=== PATIENT | female | born 1990 | race African-American/Black ===

== ENCOUNTER 2016-10-16 19:02 | Emergency (ER) | payer OTHER ==
[~2016-10-16] VITALS: Ht 160 cm; Wt 62.3 kg
[~2016-10-16 19:02] MED LIST: LEVAHFA IH; LORA10TA7 PO
[2016-10-16 19:36] LABS: BASOPHILS % (AUTO) 0.6 % (0.0-2.0); EOSINOPHILS % (AUTO) 2.8 % (1.0-6.0); HEMATOCRIT 40.8 % (36-46); HEMOGLOBIN 13.5 g/dL (12.0-16.0); LYMPHOCYTES # (AUTO) 2.7 K/uL (1.0-4.8); MEAN CORPUSCULAR HEMOGLOBIN 29.5 pg (26.0-34.0); MEAN CORPUSCULAR HGB CONC 33.1 G/dL (31.0-37.0); MEAN CORPUSCULAR VOLUME 89 fL (80-100); MONOCYTES # (AUTO) 0.6 K/uL (0.1-1.0); MONOCYTES % (AUTO) 6.5 % (2.0-9.0); NEUTROPHILS # (AUTO) 5.4 K/uL (1.8-7.7); NEUTROPHILS % (AUTO) 60.1 % (40.0-70.0); PLATELET COUNT (AUTO) 254 K/uL (150-450); RED BLOOD CELL COUNT(AUTO) 4.59 MIL/uL (4.00-5.20)
[2016-10-16 19:46] LABS: ANION GAP 5 mmol/L (8-16); CALCIUM, TOTAL 9.3 mg/dL (8.8-10.5); CARBON DIOXIDE 32 mmol/L (22-29); CHLORIDE 102 mmol/L (98-107); CREATININE 0.88 mg/dL (0.60-1.30); GLOMERULAR FILTR. RATE CALC > 60 mL/min (>60); POTASSIUM 3.2 mmol/L (3.5-5.1); SODIUM SERUM 139 mmol/L (136-145); UREA NITROGEN, BLOOD 7 mg/dL (7-18)
[2016-10-16 19:52] LABS: ALANINE AMINOTRANSFERASE 19 U/L (12-78); ALBUMIN 4.2 g/dL (3.4-5.0); AMYLASE 27 U/L (25-115); ASPARTATE AMINOTRANSFERASE 12 U/L (15-37); BILIRUBIN,TOTAL 0.3 mg/dL (0.1-1.0); TOTAL PROTEIN, SERUM 7.9 g/dL (6.4-8.2)
[2016-10-16 21:57] LABS: ADD UA MICROSCOPIC NO; APPEARANCE,URINE CLEAR (CLEAR); GLUCOSE, URINE (UA) NEGATIVE (NEGATIVE); KETONES,URINE NEGATIVE (NEGATIVE); LEUKOCYTE ESTERASE ,URINE NEGATIVE (NEGATIVE); OCCULT BLOOD,URINE NEGATIVE (NEGATIVE); PH,URINE 5.5 (5.0-8.0); PROTEIN,URINE NEGATIVE (NEGATIVE)
[2016-10-16] MEDS ORDERED: MORPHINE SULFATE 4 MG/ML SYRINGE IVP ONE (22:30)
[2016-10-16] MEDS ORDERED: SODIUM CHLORIDE 0.9% 1,000 ML IV ONE (22:30)
[2016-10-16] MEDS ORDERED: DEXAMETHASONE SOD PHOS 4 MG/ML 5 ML VIAL IVP ONE (22:30)
[2016-10-16] MEDS ORDERED: PROCHLORPERAZINE EDISYLATE 5 MG/ML 2 ML VIAL IVP ONE (22:30)
[2016-10-16] MEDS ORDERED: ONDANSETRON HCL 4 MG/2 ML VIAL IVP ONE (22:45)
[2016-10-17 00:52] VITALS: BP 118/78
== END 2016-10-17 00:53 | disposition home or self-care (01) ==
LOC: EMS 19:05
DX: R10.32 Left lower quadrant pain (principal); G43.909 Migraine, unspecified, not intractable, without status migrainosus; J45.909 Unspecified asthma, uncomplicated; N19 Unspecified kidney failure
CPT/HCPCS: 36415; 76830; 76856; 80053; 81003; 82150; 83690; 84703; 85025; 96361; 96374; 96375; 99285; J0780; J1100; J2270; J2405; J7030

== ENCOUNTER 2016-12-18 10:58 | Emergency (ER) | payer OTHER ==
[~2016-12-18] VITALS: Ht 160 cm; Wt 61.3 kg
[2016-12-18] MEDS ORDERED: HYDROCODONE/ACETAMINOPHEN 5-325 MG TABLET PO ONE (13:30)
[2016-12-18] MEDS ORDERED: DEXAMETHASONE SOD PHOS 4 MG/ML 5 ML VIAL IM ONE (13:30)
[2016-12-18] MEDS ORDERED: IPRATROPIUM BROMIDE 0.5 MG/2.5 ML NEB SOLUTION NEB ONE (13:30)
[2016-12-18] MEDS ORDERED: ALBUTEROL SULFATE 5 MG/ML 20 ML NEB SOLN [BULK] NEB ONE (13:30)
[2016-12-18 15:47] LABS: APPEARANCE,URINE CLOUDY (CLEAR); GLUCOSE, URINE (UA) NEGATIVE (NEGATIVE); KETONES,URINE NEGATIVE (NEGATIVE); LEUKOCYTE ESTERASE ,URINE LARGE (NEGATIVE); PROTEIN,URINE TRACE (NEGATIVE)
[2016-12-18 15:52] LABS: ADD UA MICROSCOPIC YES; OCCULT BLOOD,URINE TRACE (NEGATIVE); SQUAMOUS EPITHELIAL CELL,UR Many /LPF (None Seen); WBC,URINE 51-100 /HPF (0-5)
[2016-12-18] MEDS ORDERED: CIPROFLOXACIN HCL 250 MG TABLET PO ONE (16:00)
[2016-12-18 16:20] VITALS: BP 114/62
== END 2016-12-18 16:26 | disposition home or self-care (01) ==
LOC: EMS 10:59
DX: N39.0 Urinary tract infection, site not specified (principal); J45.909 Unspecified asthma, uncomplicated; F41.9 Anxiety disorder, unspecified; N83.209 Unspecified ovarian cyst, unspecified side
CPT/HCPCS: 71020; 80307; 81001; 87086; 94644; 99285; J1100; J7611

== ENCOUNTER 2016-12-25 18:05 | Emergency (ER) | payer OTHER ==
[~2016-12-25] VITALS: Ht 160 cm; Wt 58.0 kg
[2016-12-25] MEDS ORDERED: DiphenhydrAMINE HCL 50 MG/ML VIAL IVP ONE (19:00)
[2016-12-25] MEDS ORDERED: SODIUM CHLORIDE 0.9% 1,000 ML IV ONE ×2 (19:00→20:45)
[2016-12-25] MEDS ORDERED: PROCHLORPERAZINE EDISYLATE 5 MG/ML 2 ML VIAL IVP ONE (19:00)
[2016-12-25] MEDS ORDERED: ALBUTEROL SULFATE 5 MG/ML 20 ML NEB SOLN [BULK] NEB ONE (19:15)
[2016-12-25 19:17] LABS: BASOPHILS % (AUTO) 0.4 % (0.0-2.0); EOSINOPHILS % (AUTO) 2.5 % (1.0-6.0); HEMATOCRIT 42.6 % (36-46); HEMOGLOBIN 13.9 g/dL (12.0-16.0); LYMPHOCYTES # (AUTO) 3.8 K/uL (1.0-4.8); LYMPHOCYTES % (AUTO) 32.3 % (22.0-44.0); MEAN CORPUSCULAR HEMOGLOBIN 29.4 pg (26.0-34.0); MEAN CORPUSCULAR HGB CONC 32.5 G/dL (31.0-37.0); MEAN CORPUSCULAR VOLUME 90 fL (80-100); MONOCYTES # (AUTO) 0.8 K/uL (0.1-1.0); MONOCYTES % (AUTO) 6.7 % (2.0-9.0); NEUTROPHILS # (AUTO) 6.8 K/uL (1.8-7.7); NEUTROPHILS % (AUTO) 58.1 % (40.0-70.0); PLATELET COUNT (AUTO) 243 K/uL (150-450); RED BLOOD CELL COUNT(AUTO) 4.73 MIL/uL (4.00-5.20); RED CELL DISTRIBUTION WIDTH 12.6 % (11.5-14.5); WHITE BLOOD COUNT (AUTO) 11.7 K/uL (4.5-11.0)
[2016-12-25] MEDS ORDERED: 0.9% SODIUM CHLORIDE 5 ML NEB SOLUTION NEB ONE (19:26)
[2016-12-25 19:31] LABS: ANION GAP 8 mmol/L (8-16); CALCIUM, TOTAL 9.1 mg/dL (8.8-10.5); CARBON DIOXIDE 31 mmol/L (22-29); CHLORIDE 100 mmol/L (98-107); CREATININE 1.03 mg/dL (0.60-1.30); GLOMERULAR FILTR. RATE CALC > 60 mL/min (>60); POTASSIUM 4.1 mmol/L (3.5-5.1); SODIUM SERUM 139 mmol/L (136-145); UREA NITROGEN, BLOOD 15 mg/dL (7-18)
[2016-12-25 19:32] LABS: GLUCOSE,POINT OF CARE 91 MG/DL (70-110)
[2016-12-25 19:39] LABS: ALANINE AMINOTRANSFERASE 28 U/L (12-78); ALBUMIN 3.8 g/dL (3.4-5.0); ASPARTATE AMINOTRANSFERASE 12 U/L (15-37); BILIRUBIN,TOTAL 0.4 mg/dL (0.1-1.0); TOTAL PROTEIN, SERUM 7.5 g/dL (6.4-8.2)
[2016-12-25 20:17] LABS: INFLUENZA TYPE B NEGATIVE FOR TYPE B (NEGATIVE)
[2016-12-25 20:21] VITALS: BP 105/76
[2016-12-25 21:23] LABS: APPEARANCE,URINE CLEAR (CLEAR); GLUCOSE, URINE (UA) NEGATIVE (NEGATIVE); KETONES,URINE NEGATIVE (NEGATIVE); LEUKOCYTE ESTERASE ,URINE MODERATE (NEGATIVE); OCCULT BLOOD,URINE NEGATIVE (NEGATIVE); PROTEIN,URINE NEGATIVE (NEGATIVE)
[2016-12-25 21:34] LABS: RBC,URINE None Seen /HPF (0-2)
== END 2016-12-25 20:54 | disposition home or self-care (01) ==
LOC: EMS 18:08
DX: R10.9 Unspecified abdominal pain (principal); R51 Headache; J45.909 Unspecified asthma, uncomplicated; R10.30 Lower abdominal pain, unspecified
CPT/HCPCS: 36415; 71010; 80053; 81001; 82948; 82962; 83690; 84703; 85025; 87086; 87804; 94640; 96361; 96374; 96375; 99285; J0780; J1200; J7030; J7611

== ENCOUNTER 2017-02-22 16:15 | Emergency (ER) | payer OTHER ==
[~2017-02-22] VITALS: Ht 160 cm; Wt 57.7 kg
[2017-02-22 17:38] LABS: BASOPHILS % (AUTO) 0.6 % (0.0-2.0); HEMATOCRIT 40.9 % (36-46); HEMOGLOBIN 13.8 g/dL (12.0-16.0); LYMPHOCYTES # (AUTO) 2.2 K/uL (1.0-4.8); LYMPHOCYTES % (AUTO) 27.3 % (22.0-44.0); MEAN CORPUSCULAR HEMOGLOBIN 30.1 pg (26.0-34.0); MEAN CORPUSCULAR HGB CONC 33.7 G/dL (31.0-37.0); MEAN CORPUSCULAR VOLUME 89 fL (80-100); MONOCYTES # (AUTO) 0.5 K/uL (0.1-1.0); MONOCYTES % (AUTO) 5.5 % (2.0-9.0); NEUTROPHILS # (AUTO) 5.3 K/uL (1.8-7.7); NEUTROPHILS % (AUTO) 64.6 % (40.0-70.0); PLATELET COUNT (AUTO) 253 K/uL (150-450); RED BLOOD CELL COUNT(AUTO) 4.59 MIL/uL (4.00-5.20); RED CELL DISTRIBUTION WIDTH 12.3 % (11.5-14.5); WHITE BLOOD COUNT (AUTO) 8.2 K/uL (4.5-11.0)
[2017-02-22 17:38] LABS: APPEARANCE,URINE CLOUDY (CLEAR); GLUCOSE, URINE (UA) NEGATIVE (NEGATIVE); KETONES,URINE NEGATIVE (NEGATIVE); LEUKOCYTE ESTERASE ,URINE NEGATIVE (NEGATIVE); OCCULT BLOOD,URINE NEGATIVE (NEGATIVE); PH,URINE 5.5 (5.0-8.0); PROTEIN,URINE NEGATIVE (NEGATIVE)
[2017-02-22 17:40] LABS: RBC,URINE 0-2 /HPF (0-2); SQUAMOUS EPITHELIAL CELL,UR Many /LPF (None Seen)
[2017-02-22 17:42] LABS: ANION GAP 9 mmol/L (8-16); CALCIUM, TOTAL 8.6 mg/dL (8.8-10.5); CARBON DIOXIDE 29 mmol/L (22-29); CHLORIDE 102 mmol/L (98-107); CREATININE 0.95 mg/dL (0.60-1.30); GLOMERULAR FILTR. RATE CALC > 60 mL/min (>60); POTASSIUM 3.5 mmol/L (3.5-5.1); SODIUM SERUM 140 mmol/L (136-145); UREA NITROGEN, BLOOD 16 mg/dL (7-18)
[2017-02-22 17:49] LABS: ALANINE AMINOTRANSFERASE 24 U/L (12-78); ALBUMIN 4.1 g/dL (3.4-5.0); ASPARTATE AMINOTRANSFERASE 15 U/L (15-37); BILIRUBIN,TOTAL 0.5 mg/dL (0.1-1.0); TOTAL PROTEIN, SERUM 7.5 g/dL (6.4-8.2)
[2017-02-22 17:51] LABS: LACTIC ACID 1.1 mmol/L (0.4-2.0)
[2017-02-22 18:45] VITALS: BP 109/66
== END 2017-02-22 19:05 | disposition home or self-care (01) ==
LOC: EMS 16:16
DX: S30.1XXA Contusion of abdominal wall, initial encounter (principal); K59.00 Constipation, unspecified; R11.0 Nausea; J45.909 Unspecified asthma, uncomplicated; W19.XXXA Unspecified fall, initial encounter; Y93.89 Activity, other specified; Y92.89 Other specified places as the place of occurrence of the external cause; Y99.8 Other external cause status
CPT/HCPCS: 76705; 81025; 83605; 86140; 99285

== ENCOUNTER 2017-07-15 16:34 | Emergency (ER) | payer OTHER ==
[~2017-07-15] VITALS: Ht 160 cm; Wt 57.0 kg
[2017-07-15 17:07] LABS: BASOPHILS % (AUTO) 0.2 % (0.0-2.0); EOSINOPHILS % (AUTO) 2.4 % (1.0-6.0); HEMATOCRIT 41.1 % (36-46); HEMOGLOBIN 14.2 g/dL (12.0-16.0); LYMPHOCYTES % (AUTO) 11.3 % (22.0-44.0); MEAN CORPUSCULAR HEMOGLOBIN 30.4 pg (26.0-34.0); MEAN CORPUSCULAR HGB CONC 34.4 G/dL (31.0-37.0); MEAN CORPUSCULAR VOLUME 88 fL (80-100); MONOCYTES # (AUTO) 0.5 K/uL (0.1-1.0); MONOCYTES % (AUTO) 5.1 % (2.0-9.0); NEUTROPHILS # (AUTO) 7.5 K/uL (1.8-7.7); PLATELET COUNT (AUTO) 206 K/uL (150-450); RED BLOOD CELL COUNT(AUTO) 4.66 MIL/uL (4.00-5.20); RED CELL DISTRIBUTION WIDTH 12.3 % (11.5-14.5)
[2017-07-15 17:25] LABS: APPEARANCE,URINE CLEAR (CLEAR); GLUCOSE, URINE (UA) NEGATIVE (NEGATIVE); KETONES,URINE 40 mg/dL (NEGATIVE); LEUKOCYTE ESTERASE ,URINE NEGATIVE (NEGATIVE); NITRATE,URINE NEGATIVE (NEGATIVE); OCCULT BLOOD,URINE NEGATIVE (NEGATIVE); PH,URINE 7.5 (5.0-8.0); PROTEIN,URINE NEGATIVE (NEGATIVE); UROBILINOGEN,URINE 0.2 mg/dL (<=1.0)
[2017-07-15 17:27] LABS: BILIRUBIN,URINE PRELIM. POSITIVE (NEGATIVE)
[2017-07-15] MEDS ORDERED: KETOROLAC TROMETHAMINE 30 MG/ML VIAL IVP ONE (19:00)
[2017-07-15 20:38] VITALS: BP 113/73
== END 2017-07-15 20:56 | disposition home or self-care (01) ==
LOC: EMS 16:36
DX: R10.31 Right lower quadrant pain (principal); M54.5 Low back pain; F41.9 Anxiety disorder, unspecified; J02.9 Acute pharyngitis, unspecified; R51 Headache; J45.909 Unspecified asthma, uncomplicated; R00.0 Tachycardia, unspecified
CPT/HCPCS: 36415; 74176; 81003; 84703; 85025; 96374; 99285; J1885

== ENCOUNTER 2017-11-19 13:55 | Emergency (ER) | payer OTHER ==
[~2017-11-19] VITALS: Ht 160 cm; Wt 57.7 kg
[2017-11-19 14:10] VITALS: BP 120/76
[2017-11-19 14:43] LABS: BASOPHILS % (AUTO) 0.5 % (0.0-2.0); EOSINOPHILS % (AUTO) 3.6 % (1.0-6.0); HEMATOCRIT 38.7 % (36-46); HEMOGLOBIN 13.2 g/dL (12.0-16.0); LYMPHOCYTES % (AUTO) 28.9 % (22.0-44.0); MEAN CORPUSCULAR HEMOGLOBIN 29.6 pg (26.0-34.0); MEAN CORPUSCULAR VOLUME 87 fL (80-100); MONOCYTES # (AUTO) 0.4 K/uL (0.1-1.0); MONOCYTES % (AUTO) 6.4 % (2.0-9.0); NEUTROPHILS # (AUTO) 4.2 K/uL (1.8-7.7); NEUTROPHILS % (AUTO) 60.6 % (40.0-70.0); PLATELET COUNT (AUTO) 204 K/uL (150-450); RED BLOOD CELL COUNT(AUTO) 4.44 MIL/uL (4.00-5.20); RED CELL DISTRIBUTION WIDTH 12.7 % (11.5-14.5)
[2017-11-19 15:12] LABS: ANION GAP 9 mmol/L (8-16); CALCIUM, TOTAL 9.1 mg/dL (8.8-10.5); CARBON DIOXIDE 29 mmol/L (22-29); CHLORIDE 104 mmol/L (98-107); CREATININE 0.83 mg/dL (0.60-1.30); GLOMERULAR FILTR. RATE CALC > 60 mL/min (>60); GLUCOSE,RANDOM 92 mg/dL (70-110); POTASSIUM 3.6 mmol/L (3.5-5.1); SODIUM SERUM 142 mmol/L (136-145); UREA NITROGEN, BLOOD 11 mg/dL (7-18)
[2017-11-19 15:18] LABS: ALANINE AMINOTRANSFERASE 18 U/L (12-78); ALKALINE PHOSPHATASE 27 U/L (46-116); ASPARTATE AMINOTRANSFERASE 14 U/L (15-37); BILIRUBIN,TOTAL 0.6 mg/dL (0.1-1.0); LIPASE 74 U/L (73-393); TOTAL PROTEIN, SERUM 7.3 g/dL (6.4-8.2)
== END 2017-11-19 16:37 | disposition left against medical advice (07) ==
LOC: EMS 13:59
DX: R10.31 Right lower quadrant pain (principal); J45.909 Unspecified asthma, uncomplicated; Z53.21 Procedure and treatment not carried out due to patient leaving prior to being seen by health care provider

== ENCOUNTER 2018-11-28 12:03 | Emergency (ER) | payer SELFPAY ==
[~2018-11-28] VITALS: Ht 160 cm; Wt 57.7 kg
[2018-11-28] MEDS ORDERED: IPRATROPIUM BROMIDE 0.5 MG/2.5 ML NEB SOLUTION NEB ONE (12:45)
[2018-11-28] MEDS ORDERED: ALBUTEROL SULFATE 2.5 MG/0.5 ML NEB SOLUTION NEB ONE (12:45)
[2018-11-28] MEDS ORDERED: SODIUM CHLORIDE 0.9% 1,000 ML IV ONE (13:00)
[2018-11-28] MEDS ORDERED: ONDANSETRON HCL 4 MG/2 ML VIAL IVP ONE (13:00)
[2018-11-28] MEDS ORDERED: ACETAMINOPHEN 500 MG TABLET PO ONE (13:00)
[2018-11-28 13:23] LABS: BASOPHILS % (AUTO) 0.4 % (0.0-2.0); EOSINOPHILS % (AUTO) 3.5 % (1.0-6.0); HEMOGLOBIN 13.6 g/dL (12.0-16.0); LYMPHOCYTES # (AUTO) 2.3 K/uL (1.0-4.8); MEAN CORPUSCULAR HEMOGLOBIN 30.1 pg (26.0-34.0); MEAN CORPUSCULAR HGB CONC 33.9 G/dL (31.0-37.0); MEAN CORPUSCULAR VOLUME 89 fL (80-100); MONOCYTES # (AUTO) 0.5 K/uL (0.1-1.0); NEUTROPHILS # (AUTO) 3.4 K/uL (1.8-7.7); NEUTROPHILS % (AUTO) 53.1 % (40.0-70.0); PLATELET COUNT (AUTO) 229 K/uL (150-450); RED CELL DISTRIBUTION WIDTH 12.5 % (11.5-14.5)
[2018-11-28 13:37] LABS: B-TYPE NATRIURETIC PEPTIDE 5 pg/mL (0-100)
[2018-11-28 13:46] LABS: ANION GAP 8 mmol/L (8-16); CALCIUM, TOTAL 9.3 mg/dL (8.8-10.5); CARBON DIOXIDE 29 mmol/L (22-29); CHLORIDE 102 mmol/L (98-107); CREATININE 0.79 mg/dL (0.60-1.30); GLOMERULAR FILTR. RATE CALC > 60 mL/min (>60); GLUCOSE,RANDOM 89 mg/dL (70-110); POTASSIUM 3.2 mmol/L (3.5-5.1); SODIUM SERUM 139 mmol/L (136-145); UREA NITROGEN, BLOOD 8 mg/dL (7-18)
[2018-11-28 13:52] LABS: INFLUENZA TYPE A NEGATIVE FOR TYPE A (NEGATIVE); INFLUENZA TYPE B NEGATIVE FOR TYPE B (NEGATIVE)
[2018-11-28] MEDS ORDERED: POTASSIUM CHLORIDE 20 MEQ ER TABLET PO ONE (14:00)
[2018-11-28] MEDS ORDERED: CefTRIAXone 1 GM/DEXTROSE 50 ML IV ONE (14:00)
[2018-11-28] MEDS ORDERED: AZITHROMYCIN 500 MG/NS 250 ML IV ONE (14:00)
[2018-11-28 14:31] LABS: ALANINE AMINOTRANSFERASE 18 U/L (12-78); ALBUMIN 4.1 g/dL (3.4-5.0); ALKALINE PHOSPHATASE 33 U/L (46-116); ASPARTATE AMINOTRANSFERASE 17 U/L (15-37); BILIRUBIN,TOTAL 0.4 mg/dL (0.1-1.0); HCG,QUANTITATIVE < 1 mIU/mL (0-6); LIPASE 73 U/L (73-393); TOTAL PROTEIN, SERUM 7.6 g/dL (6.4-8.2)
[2018-11-28] MEDS ORDERED: ALBUTEROL SULFATE HFA 90 MCG/PUFF 8 GM INHALER IH ONE (15:00)
[2018-11-28 15:15] VITALS: BP 116/80
[2018-11-28] MEDS ORDERED: KETOROLAC TROMETHAMINE 30 MG/ML VIAL IVP ONE (15:30)
== END 2018-11-28 17:14 | disposition home or self-care (01) ==
LOC: EMS 12:06
DX: J18.9 Pneumonia, unspecified organism (principal); J45.909 Unspecified asthma, uncomplicated; F41.9 Anxiety disorder, unspecified; Z79.899 Other long term (current) drug therapy
CPT/HCPCS: 36415; 71045; 80053; 83690; 83880; 84484; 84702; 85025; 87040; 87804; 93005; 94640; 96365; 96367; 96375; 99285; J0456; J0696; J1885; J2405; J7030; J3535

== ENCOUNTER 2019-02-17 11:29 | Emergency (ER) | payer SELFPAY ==
[~2019-02-17] VITALS: Ht 160 cm; Wt 60.0 kg
[2019-02-17 12:19] LABS: APPEARANCE,URINE CLOUDY (CLEAR); BILIRUBIN,URINE NEGATIVE (NEGATIVE); GLUCOSE, URINE (UA) NEGATIVE (NEGATIVE); KETONES,URINE NEGATIVE (NEGATIVE); NITRATE,URINE NEGATIVE (NEGATIVE); OCCULT BLOOD,URINE NEGATIVE (NEGATIVE); PH,URINE 5.5 (5.0-8.0); PROTEIN,URINE NEGATIVE (NEGATIVE); UROBILINOGEN,URINE 0.2 mg/dL (<=1.0)
[2019-02-17 12:23] LABS: LEUKOCYTE ESTERASE ,URINE TRACE (NEGATIVE)
[2019-02-17 12:24] LABS: BACTERIA,URINE None Seen /HPF (None Seen); RBC,URINE None Seen /HPF (0-2); SQUAMOUS EPITHELIAL CELL,UR Many /LPF (None Seen); WBC,URINE 0-2 /HPF (0-5)
[2019-02-17 12:29] LABS: BASOPHILS % (AUTO) 0.4 % (0.0-2.0); EOSINOPHILS % (AUTO) 2.5 % (1.0-6.0); HEMATOCRIT 41.5 % (36-46); LYMPHOCYTES # (AUTO) 2.1 K/uL (1.0-4.8); LYMPHOCYTES % (AUTO) 36.1 % (22.0-44.0); MEAN CORPUSCULAR HGB CONC 33.7 G/dL (31.0-37.0); MEAN CORPUSCULAR VOLUME 89 fL (80-100); MONOCYTES # (AUTO) 0.4 K/uL (0.1-1.0); MONOCYTES % (AUTO) 7.7 % (2.0-9.0); NEUTROPHILS # (AUTO) 3.1 K/uL (1.8-7.7); NEUTROPHILS % (AUTO) 53.3 % (40.0-70.0); PLATELET COUNT (AUTO) 231 K/uL (150-450); RED BLOOD CELL COUNT(AUTO) 4.66 MIL/uL (4.00-5.20); RED CELL DISTRIBUTION WIDTH 12.3 % (11.5-14.5)
[2019-02-17] MEDS ORDERED: ONDANSETRON HCL 4 MG TABLET PO ONE (12:30)
[2019-02-17] MEDS ORDERED: IBUPROFEN 800 MG TABLET PO ONE (12:30)
[2019-02-17 12:37] LABS: ANION GAP 4 mmol/L (8-16); CALCIUM, TOTAL 9.3 mg/dL (8.8-10.5); CARBON DIOXIDE 31 mmol/L (22-29); CHLORIDE 103 mmol/L (98-107); CREATININE 0.89 mg/dL (0.60-1.30); GLOMERULAR FILTR. RATE CALC > 60 mL/min (>60); GLUCOSE,RANDOM 67 mg/dL (70-110); POTASSIUM 3.9 mmol/L (3.5-5.1); SODIUM SERUM 138 mmol/L (136-145); UREA NITROGEN, BLOOD 14 mg/dL (7-18)
[2019-02-17 12:48] LABS: ALANINE AMINOTRANSFERASE 20 U/L (12-78); ALKALINE PHOSPHATASE 32 U/L (46-116); ASPARTATE AMINOTRANSFERASE 14 U/L (15-37); BILIRUBIN,TOTAL 0.6 mg/dL (0.1-1.0); HCG,QUANTITATIVE < 1 mIU/mL (0-6); LIPASE 71 U/L (73-393); TOTAL PROTEIN, SERUM 7.8 g/dL (6.4-8.2)
[2019-02-17 14:12] VITALS: BP 112/78
== END 2019-02-17 14:13 | disposition home or self-care (01) ==
LOC: EMS 11:29
DX: N83.202 Unspecified ovarian cyst, left side (principal); N64.4 Mastodynia; J45.909 Unspecified asthma, uncomplicated; F41.9 Anxiety disorder, unspecified
CPT/HCPCS: 36415; 76856; 80053; 81001; 83690; 84702; 85025; 99284; Q0162